=== PATIENT | female | born 1930 | race Caucasian/White ===

== ENCOUNTER 2016-12-23 17:12 | Inpatient (IN) | payer MEDICARE, OTHER ==
[~2016-12-23] VITALS: Ht 152.4 cm; Wt 84.7 kg
[~2016-12-23 17:12] MED LIST: ALL220TA; HYZA100T4; RALO1TAB13
[2016-12-23 17:30] VITALS: BP 171/74; PULSE 84; RESP 16; TEMP 98.3; O2SAT 100
--- NOTE | 2016-12-23 17:45 | PD ---
HPI Chief Complaint: left ankle pain Time Seen by Provider: 17:40 Travel History International Travel<30 days: No Contact w/Intl Traveler<30days: No Traveled to known affect area: No History of Present Illness HPI This is an 86-year-old female who presents via EMS after she had a mechanical fall a walker with her walker. There is question whether she got a little dizzy and fell to the floor. She denies any loss of consciousness. She denies any chest pain, chest pressure. When paramedics arrived, they thought that she had a deformed left ankle and splinted it. When [facility] arrived, she was complaining of no pain. On my examination, she states she has mild pain in her medial left ankle. She denies any pain anywhere else. She denies any dizziness now. She denies any chest pain, chest pressure. PFSH Past Medical History Arthritis: Yes Autoimmune Disease: No Blood Disorders: No Cancer: No Cardiovascular Problems: Yes Chemotherapy: No Diminished Hearing: No Endocrine: No Genitourinary: No Hiatal Hernia: Yes Hypertension: Yes Immune Disorder: No Musculoskeletal: No Neurologic: No Psychiatric: No Reproductive: No Respiratory: No Radiation Therapy: No Renal Failure: No Sickle Cell Disease: No Past Surgical History Abdominal Surgery: Yes AICD: No Arteriovenous Shunt: No Gynecologic Surgery: Yes (HYSTERCTOMY) Hysterectomy: Yes Insulin Pump: No Joint Replacement: Yes Pacemaker: No Social History Alcohol Use: No Tobacco Use: No Substance Use: No Allergies-Medications (Allergen,Severity, Reaction): Coded Allergies: Morphine (Verified Allergy, Severe, NAUSEA AND VOMITING, 12/23/16) Reported Meds & Prescriptions Reported Meds & Active Scripts Active Reported Aleve (Naproxen Sodium) 220 Mg Tab Evista (Raloxifene HCl) 60 Mg Tab Hyzaar 100-12.5 (Losartan Potassium-Hct 100-12.5) 100 - Tab Review of Systems Except as stated in HPI: all other systems reviewed are Neg General / Constitutional: No: Fever, Chills Eyes: No: Diploplia, Blurred Vision HENT: No: Headaches, Vertigo, Lightheadedness Cardiovascular: No: Chest Pain or Discomfort, Palpitations Respiratory: No: Cough, Shortness of Breath Gastrointestinal: No: Nausea, Vomiting, Abdominal Pain Musculoskeletal: Positive: Edema (chronic bilateral lower extremity edema.), Pain (left ankle), No: Weakness Skin: Positive Other (dry skin changes secondary to edema of her lower extremities) Neurologic: Positive: Dizziness (questionable earlier however patient states she doesn't think she was dizzy), No: Weakness, Headache (.), Change in Mentation Physical Exam Narrative GENERAL: Well-nourished, well-developed patient. SKIN: Warm and dry. HEAD: Normocephalic last atraumatic. EYES: No injection or drainage. NECK: Supple, trachea midline. CARDIOVASCULAR: Regular rate and rhythm without murmurs, gallops, or rubs. RESPIRATORY: Breath sounds equal bilaterally. No accessory muscle use. GASTROINTESTINAL: Abdomen soft, non-tender, nondistended. MUSCULOSKELETAL: Chronic 1+ edema to the bilateral lower extremities. Patient states this is not new. There is mild tenderness to palpation in the left medial malleolus. There is no obvious deformity or crepitance noted. There is questionable early ecchymosis noted. She was able to dorsiflex and plantarflex and reported minimal discomfort in her medial malleoli distribution. NEUROLOGICAL: Awake and alert. Cranial nerves II through XII intact. Motor grossly within normal limits. Five out of 5 muscle strength in all muscle groups. Normal speech. Data Data Last Documented VS Vital Signs Date Time Temp Pulse Resp B/P Pulse Ox O2 Delivery O2 Flow Rate FiO2 12/23/16 17:30 98.3 84 16 171/74 100 Orders Ankle, Complete ([id number]) (12/23/16 17:40) Electrocardiogram (12/23/16 18:41) Complete Blood Count With Diff (12/23/16 18:41) Basic Metabolic Panel (Bmp) (12/23/16 18:41) Prothrombin Time / Inr (Pt) (12/23/16 18:41) Act Partial Throm Time (Ptt) (12/23/16 18:41) Chest, Single Ap (12/23/16 18:41) MDM Medical Decision Making Medical Screen Exam Complete: Yes Emergency Medical Condition: Yes Differential Diagnosis Left ankle sprain versus fracture versus contusion Narrative Course 86-year-old female who is status post mechanical fall. The patient had angulated ankle according to the [facility] medics initially on scene. Patient was splinted by fire. When patient arrived she had minimal pain in her medial ankle. X-ray of the left ankle shows a minimally displaced angulated closed distal tib-fib fracture. The patient has no other injuries. I spoke with Dr. Zaira Strauss's PA, who recommended we admit to medicine. He recommended nothing by mouth after midnight. Diagnosis Primary Impression: Closed fracture of distal end of left fibula and tibia Additional Impression: History of hypertension Epifanio Jimenes MD Dec 23, 2016 17:45
--- NOTE | 2016-12-23 18:11 | RADRPT ---
EXAM DATE/TIME: 12/23/2016 18:10 [facility] COMPARISON: No previous studies available for comparison. INDICATIONS : Fall. MEDICAL HISTORY : None. SURGICAL HISTORY : None. ENCOUNTER: Initial ACUITY: 1 day PAIN SCORE: 10/10 LOCATION: Left ankle FINDINGS: Three view exam was performed of the left ankle. There is a mildly displaced and angulated fracture o f the distal tibia and distal fibula with overlying soft tissue swelling. The bones are diffusely ost eopenic. There is no dislocation at the ankle. Vascular calcifications are present. Remote fracture o f fifth metatarsal proximally. CONCLUSION: 1. No acute mildly displaced and angulated fractures of the distal tibial and fibular shafts. Underly ing osteopenia. Misha Nava MD on December 23, 2016 at 18:08 Board Certified Radiologist. This report was verified electronically.
--- NOTE | 2016-12-23 19:30 | RADRPT ---
EXAM DATE/TIME: 12/23/2016 19:08 [facility] COMPARISON: No previous studies available for comparison. INDICATIONS : Chest Pain MEDICAL HISTORY : Cardiovascular disease. Hypertension SURGICAL HISTORY : None. ENCOUNTER: Initial ACUITY: 1 day PAIN SCORE: 5/10 LOCATION: Bilateral chest FINDINGS: No focal consolidation. Minimal basilar atelectasis or scarring. Heart size upper limits normal. No e ffusion or pneumothorax. Atherosclerotic and tortuous aorta. Advanced arthropathy of both shoulders. CONCLUSION: 1. Minimal basilar scarring. No focal consolidation or effusion. Misha Nava MD on December 23, 2016 at 19:28 Board Certified Radiologist. This report was verified electronically.
--- NOTE | 2016-12-23 19:31 | HHI.HP ---
[facility] Service Family Medicine Primary Care Physician Unknown Admission Diagnosis left tib/fib fracture, hypertension by history. Diagnoses: International Travel<30 Days: No Contact w/Intl Traveler<30days: No Known Affected Area: No History of Present Illness Patient is a 86 year old female with PMH significant for HTN, hyperlipidemia, possible diabetes based on medicine list, who presents to the ED after fall. She states that around 8 AM this morning she was walking around her living room with her wheeled walker, felt "dizzy", and "slid down" onto the ground. She states she was able to pull herself up with her walker and sat in a chair. It is unclear what happened immediately after this, as the story that the patient and her son give is different. The patient states that she sat in the chair and eventually notified her "cleaning lady" named Sienna Del Toro about the fall, while the patient's son states that his son was eventually notified by the cleaning lady about the fall, came to the house, and eventually notified the paramedics. She does also endorse total body weakness without focal deficits. She did not lose consciousness or have seizure-like activity per her report, but there were no witnesses. The patient does relate that her left ankle is sore. She denies any other pain including headache, neck pain, shoulder, ankle, wrist, hip, knee, and right ankle pain. She is sure that she did not hit her head or bottom during the fall. He is unclear how the ankle got injured. She states that she did not slip or get caught on any carpeted area but does date that she has rugs. She states that she has not had any falls. She denies any increased urinary frequency or decreased urinary frequency and denies any dysuria. She denies any bleeding from her stools and notes normal bowel movements. She is unsure what medications she takes besides Benicar but does offer to separate paperwork lists of her medications, neither have dates on them and the medications are slightly different on them. The son does know primarily that he is concerned about her mental status. He visits his mother daily. He notes that on Sunday (5 days ago) he arrived and she was "sick" and had urinated on herself. He helped clean her up and noted that she seemed better the next day. States he does not know what medications the patient takes and is concerned about her being safe at home alone and suspects she is not eating much. The patient lives alone. He and the patient's brother and sister all agree that she has lost 30-40 pounds over the last 6 months to one year's time. PCP is Dr. Rika Oconnell. (Lauryn Chavez MD R1) Review of Systems ROS Limitations: Hearing Impaired Constitutional: COMPLAINS OF: Weight loss (quite a bit, 30-40lb in 6-12 month) , DENIES: Fever, Chills Endocrine: DENIES: Polyuria Eyes: DENIES: Blurred vision, Diplopia, Vision loss Ears, nose, mouth, throat: COMPLAINS OF: Hearing loss (wears aids), DENIES: Tinnitus, Vertigo Respiratory: DENIES: Cough, Wheezing Cardiovascular: DENIES: Chest pain, Palpitations, Syncope Gastrointestinal: DENIES: Black stools, Bloody stools, Constipation, Diarrhea, Nausea, Vomiting Integumentary: DENIES: Rash Hematologic/lymphatic: DENIES: Bruising Immunologic/allergic: DENIES: Urticaria Neurologic: COMPLAINS OF: Poor Balance (uses wheeled walker), DENIES: Headache , Localized weakness, Speech Problems (Lauryn Chavez MD R1) Past Family Social History Past Medical History Based on medicine list and limited patient history: HTN GERD Osteoporosis Diabetes Anxiety? Past Surgical History Hysterectomy Hemorrhoidectomy Large ovarian tumor excision ("noncancerous") Bilateral knee arthroplasty Reported Medications Reported Meds & Active Scripts Active Reported Benicar Hct (Olmesartan-Hydrochlorothiazide) 40-12.5 mg Tab 1 Tab PO DAILY Evista (Raloxifene HCl) 60 Mg Tab 60 Mg PO DAILY Metformin (Metformin HCl) 500 Mg Tab 750 Mg PO BIDPC With meals Xanax (Alprazolam) 0.25 Mg Tab 0.25 Mg PO HS PRN Simvastatin 10 Mg Tab 10 Mg PO DAILY Omeprazole 20 Mg Tab 20 Mg PO DAILY Amlodipine (Amlodipine Besylate) 10 Mg Tab 10 Mg PO DAILY (Lauryn Chavez MD R1 ) Allergies: Coded Allergies: Morphine (Verified Allergy, Severe, NAUSEA AND VOMITING, 12/23/16) Active Ordered Medications Inpatient Medications Clonidine 0.1 mg 0.1 mg Q6H PRN PO SEE LABEL COMMENTS; Start 12/23/16 at 20:15 Dextrose (D50w (Vial) Inj) 25 ml UNSCH PRN IV PUSH HYPOGLYCEMIA-SEE COMMENTS; Start 12/23/16 at 20:15 Glucagon (Glucagon Inj) 1 mg UNSCH PRN OTHER HYPOGLYCEMIA-SEE COMMENTS; Start 12/23/16 at 20:15 Hydromorphone HCl (Dilaudid Pf Inj) 0.5 mg ONCE ONCE IV PUSH ; Start 12/23/16 at 20:15; Stop 12/23/16 at 20:16; Status DC Insulin Aspart (NovoLOG SUPPLEMENTAL SCALE) 1 ACHS SLIDING SCALE SQ ; Start at 21:00 Naloxone HCl (Narcan Inj) 0.4 mg UNSCH PRN IV SEE LABEL COMMENTS; Start at 20:00 Potassium Chloride/Sodium Chloride (KCl Inj/NS 1000 ml Inj) 1 ml @ 100 mls/hr Q1M IV ; Start 12/24/16 at 19:57; Status UNV Potassium Chloride (KCl) 40 meq ONCE ONCE PO ; Start 12/23/16 at 20:30; Stop at 20:31; Status UNV Sodium Chloride (NS 1000 ml Inj) 1,000 ml @ 100 mls/hr Q10H IV ; Start at 19:57; Stop 12/23/16 at 20:23; Status DC Sodium Chloride (NS Flush) 2 ml BID IV FLUSH ; Start 12/23/16 at 21:00 Family History No significant past medical history reported by patient or patient's son Social History Patient denies alcohol, tobacco, illicit drug use. She lives alone, uses a little longer for evaluation. She denies a history of falls. Her 5 years ago PCP is Dr. Rika Oconnell Patient has 2 sons, one in the [place] area named Juan Li, cell is [phone] (Lauryn Chavez MD R1) Physical Exam Vital Signs Vital Signs Date Time Temp Pulse Resp B/P Pulse Ox O2 Delivery O2 Flow Rate FiO2 12/23/16 17:30 98.3 84 16 171/74 100 Physical Exam GENERAL: This is a well-nourished, well-developed elderly patient, lying in bed. Left lower extremity in splint. SKIN: No rashes, ecchymoses or lesions. Cool and dry. HEAD: Atraumatic. Normocephalic. No temporal or scalp tenderness. EYES: Pupils equal round and reactive. Extraocular motions intact. No scleral icterus. No injection or drainage. ENT: Patient has hearing aids but is notably hard of hearing. Nose without bleeding or drainage. Throat without erythema, tonsillar hypertrophy or exudate. Mucous membranes appear moist. Uvula midline. Airway patent. NECK: Trachea midline. No JVD or lymphadenopathy. No carotid bruits. Supple, nontender, no meningeal signs. CARDIOVASCULAR: Regular rate and rhythm without murmurs, gallops, or rubs. RESPIRATORY: Clear to auscultation. Breath sounds equal bilaterally. No wheezes , rales, or rhonchi. GASTROINTESTINAL: Abdomen soft, non-tender, nondistended. No hepato-splenomegaly , or palpable masses. No guarding. MUSCULOSKELETAL: Right lower extremity is noted to have 1+ edema to the knee. No joint tenderness or effusion. No calf tenderness. The left lower extremity is noted to be in a splint with ice cuff in place. The toes move freely within the splint and in the unaffected foot. There is normal capillary refill and sensation in the toes bilaterally. NEUROLOGICAL: Awake and alert. Cranial nerves II through XII intact. Motor function grossly within normal limits. Five out of 5 muscle strength in all muscle groups. Normal speech. (cannot assess left lower extremity for strength and motor function) Laboratory Laboratory Tests Test 12/23/16 19:00 White Blood Count 9.0 TH/MM3 (4.0-11.0) Red Blood Count 3.75 MIL/MM3 (4.00-5.30) Hemoglobin 11.6 GM/DL (11.6-15.3) Hematocrit 35.4 % (35.0-46.0) Mean Corpuscular Volume 94.4 FL (80.0-100.0) Mean Corpuscular Hemoglobin 31.0 PG (27.0-34.0) Mean Corpuscular Hemoglobin 32.8 % Concent (32.0-36.0) Red Cell Distribution Width 14.0 % (11.6-17.2) Platelet Count 233 TH/MM3 (150-450) Mean Platelet Volume 7.8 FL (7.0-11.0) Neutrophils (%) (Auto) 83.1 % (16.0-70.0) Lymphocytes (%) (Auto) 9.3 % (9.0-44.0) Monocytes (%) (Auto) 6.8 % (0.0-8.0) Eosinophils (%) (Auto) 0.1 % (0.0-4.0) Basophils (%) (Auto) 0.7 % (0.0-2.0) Neutrophils # (Auto) 7.5 TH/MM3 (1.8-7.7) Lymphocytes # (Auto) 0.8 TH/MM3 (1.0-4.8) Monocytes # (Auto) 0.6 TH/MM3 (0-0.9) Eosinophils # (Auto) 0.0 TH/MM3 (0-0.4) Basophils # (Auto) 0.1 TH/MM3 (0-0.2) CBC Comment DIFF FINAL Differential Comment Prothrombin Time 11.2 SEC (9.8-11.6) Prothromb Time International 1.0 RATIO Ratio Activated Partial 23.4 SEC Thromboplast Time (24.3-30.1) Sodium Level 130 MEQ/L (136-145) Potassium Level 2.8 MEQ/L (3.5-5.1) Chloride Level 91 MEQ/L (98-107) Carbon Dioxide Level 26.1 MEQ/L (21.0-32.0) Anion Gap 13 MEQ/L (5-15) Blood Urea Nitrogen 15 MG/DL (7-18) Creatinine 0.83 MG/DL (0.50-1.00) Estimat Glomerular Filtration 65 ML/MIN (>89) Rate Random Glucose 106 MG/DL (74-106) Calcium Level 8.5 MG/DL (8.5-10.1) (Lauryn Chavez MD R1) Imaging Last 72 hours Impressions Chest X-Ray 12/23/16 1841 Signed Impressions: Service Date/Time: Friday, December 23, 2016 19:08 - CONCLUSION: 1. Minimal basilar scarring. No focal consolidation or effusion. Misha Nava MD Ankle X-Ray 12/23/16 174 Signed Impressions: Service Date/Time: Friday, December 23, 2016 18:10 - CONCLUSION: 1. No acute mildly displaced and angulated fractures of the distal tibial and fibular shafts. Underlying osteopenia. Misha Nava MD (Lauryn Chavez MD R1) Assessment and Plan Assessment and Plan Patient 86 year old female with history of HTN, hyperlipidemia, possible diabetes who presents after mechanical fall. ED workup reveals acute mild displacement related fractures of both the distal tibia and fibula of the left ankle. She is also noted to have hypokalemia on admission. Code Status Full code Discussed Condition With Dr. Holliday (Lauryn Chavez MD R1) Attending Attestation THIS CASE WAS DISCUSSED WITH THE RESIDENT PHYSICIANS. I HAVE REVIEWED THE RECORD AND AGREE WITH THE ABOVE NOTE AND PLAN OF CARE WAS DISCUSSED. I HAVE AUTHORIZED THE ORDER FOR ADMISSION TO AN IN-PATIENT STATUS. (Duc Hoawrd MD) Problem List: (1) Closed fracture of distal end of left fibula and tibia Status: Acute Plan: Patient presents status post fall which occurred 12/23 at approximately 8 AM, resulting in closed nondisplaced fractures of the left distal tibial and fibular shafts. The mechanics of the fall are unclear by patient's history and it was unwitnessed. Plan: -Patient has left lower extremity is in immobilizing splint with icepack -Orthopedic consult -PT, OT, case management consult -She is nothing by mouth after midnight in the event of procedure in a.m. -Hold anticoagulation at this time, will start if no procedure planned -Patient is on raloxifene at home suggesting osteoporosis. Will hold this medication given increased risk for thromboembolism (2) Hypokalemia Status: Acute Plan: Hypokalemia to 2.8 noted on admission labs. This could contribute to patient's presentation. Likely related to poor nutrition. EKG was ordered which is notable for normal sinus rhythm, rate approximately 80, normal NC and QT intervals. There is no evidence of ischemic changes. There is no evidence of T wave abnormalities. Cardiac enzymes negative 1. Plan: Potassium replete orally to 40 mEq Potassium replete IV 40 mEq in 100 ml NS Add 20 mEq potassium to each liter of IVF, which is running at 100 mL per hour Trend BMP at 2200 and in the morning Continue to replete as needed. (3) Hypertension Status: Chronic Plan: Patient is poor historian, however, she asserts she takes Benicar. It seems that she takes Benicar HCT as one list notes this medication at 40/25 mg dosing and the other lists a dose which is not available. Amlodipine is listed as 10mg daily on both lists. Plan: Clonidine to 0.1mg PO every 6 hours as needed for blood pressure >170/100 Restart home amlodipine at 10 mg daily Hold Gloriar is unclear which medication of the above formulations she was taking, will give HCTZ 25mg daily starting 12/24 Will also continue simvastatin 10 mg daily for cholesterol management (4) Fall Status: Acute Plan: Patient is status post fall. The history behind the fall is not consistent with how patient was found when [facility] arrived. The fall was possibly mechanical, however, other etiologies cannot be excluded. Differential diagnosis to include mechanical fall, cognitive impairment, medication misuse, polypharmacy, hypotension, infection. -CBC, CMP, magnesium ordered, notable for hypokalemia to 2.8. Management noted elsewhere -UA pending -Fall precautions -Out of bed with assistance -Orthostatic vital signs -EKG showing no acute abnormality, may be indicated to obtain carotid ultrasound and echo and further workup possible cardiac etiology of fall -Vit D, calcium, B12 level, TSH -Ordered PT, OT, case management -Ordered CT head to exclude acute cerebral source of fall, e.g. bleed (5) Osteoporosis Status: Chronic Plan: Patient takes raloxifene 60 mg daily per her medication list, likely for osteoporosis. One of the known adverse effects of this medication is peripheral edema, which patient does have. It can also increase risk of venous thromboembolism. Plan: -Hold raloxifene (6) Diabetes Status: Chronic Plan: Per patient's medication list, she is on metformin. She states she has diabetes but does not offer more history. Plan: Check blood sugars Low dose sliding scale NovoLog (7) Fluids/Electrolytes/Nutrition/Prophylaxis Status: Acute Plan: Fluids: NS @ 100ml/hr Electrolytes: monitor and replete as needed. Hypokalemia of 2.8 meq/L on admission Nutrition: NPO after midnight DVT Prophylaxis: We'll hold given possible procedure in a.m., start Lovenox 40mg subQ q24hr if no procedure or 24 hours after procedure GI Prophylaxis: Not indicated (Lauryn Chavez MD R1) Problem Qualifiers (1) Closed fracture of distal end of left fibula and tibia: Qualified Code: S82.302A - Closed fracture of distal end of left fibula and tibia, initial encounter Lauryn Chavez MD R1 Dec 23, 2016 19:31 Duc Howard MD Dec 24, 2016 12:31
[2016-12-23 19:38] LABS: AUTOMATED NEUTROPHIL # 7.5 TH/MM3 (1.8-7.7); BASOPHIL # 0.1 TH/MM3 (0-0.2); BASOPHIL % 0.7 % (0.0-2.0); EOSINOPHIL % 0.1 % (0.0-4.0); HEMATOCRIT 35.4 % (35.0-46.0); HEMO FLAGS DIFF FINAL; LYMPH % 9.3 % (9.0-44.0); LYMPHOCYTE # 0.8 TH/MM3 (1.0-4.8); MEAN CELL VOLUME 94.4 FL (80.0-100.0); MEAN CORPUSCULAR HGB CONC 32.8 % (32.0-36.0); MONO % 6.8 % (0.0-8.0); NEUT % 83.1 % (16.0-70.0); PLATELET COUNT 233 TH/MM3 (150-450); RED BLOOD COUNT 3.75 MIL/MM3 (4.00-5.30)
[2016-12-23 19:54] LABS: APTT (PATIENT) 23.4 SEC (24.3-30.1); PROTHROMBIN TIME - PATIENT 11.2 SEC (9.8-11.6)
[2016-12-23] MEDS ORDERED: SODIUM CHLOR 0.9% 1000 ML INJ 1,000 ML IV SCH (19:57)
[2016-12-23] MEDS ORDERED: NALOXONE HCL 0.4 MG/ML AMP IV PRN (20:00)
[2016-12-23] MEDS ORDERED: SODIUM CHLORIDE 0.9% FLUSH 10 ML FLUSH IV FLUSH PRN (20:00)
[2016-12-23] MEDS ORDERED: HYDROmorphone HCL PF 1 MG/ML VIAL IV PUSH ONE (20:15)
[2016-12-23] MEDS ORDERED: GLUCAGON 1 MG/ML VIAL OTHER PRN (20:15)
[2016-12-23] MEDS ORDERED: cloNIDine HCL 0.1 MG TAB PO PRN (20:15)
[2016-12-23] MEDS ORDERED: DEXTROSE 50% IN WATER 50 ML VIAL(D50) IV PUSH PRN (20:15)
[2016-12-23 20:17] LABS: BICARBONATE 26.1 MEQ/L (21.0-32.0)
[2016-12-23 20:18] LABS: POTASSIUM 2.8 MEQ/L (3.5-5.1)
[2016-12-23] MEDS ORDERED: AMLO10TA2 PO (20:22)
[2016-12-23] MEDS ORDERED: SIMV10TA PO (20:22)
[2016-12-23] MEDS ORDERED: EVIS60TA PO ×2 (20:22→20:39)
[2016-12-23] MEDS ORDERED: OMEP20TA PO (20:22)
[2016-12-23] MEDS ORDERED: ALPR.25 PO (20:22)
[2016-12-23] MEDS ORDERED: METF500T PO (20:25)
[2016-12-23] MEDS ORDERED: POTASSIUM CHLORIDE 10 MEQ CONTROLLED RELEASE TAB PO ONE (20:30)
--- NOTE | 2016-12-23 20:35 | RADRPT ---
EXAM DATE/TIME: 12/23/2016 20:23 [facility] COMPARISON: No previous studies available for comparison. INDICATIONS : Trauma; fall. RADIATION DOSE: 36.34 CTDIvol (mGy) MEDICAL HISTORY : Hypertension. SURGICAL HISTORY : None. ENCOUNTER: Initial ACUITY: 1 day PAIN SCALE: 6/10 LOCATION: cranial TECHNIQUE: Multiple contiguous axial images were obtained of the head. Using automated exposure control and adj ustment of the mA and/or kV according to patient size, radiation dose was kept as low as reasonably a chievable to obtain optimal diagnostic quality images. FINDINGS: CEREBRUM: The ventricles are normal for age. No evidence of midline shift, mass lesion, hemorrhage or acute in farction. No extra-axial fluid collections are seen. POSTERIOR FOSSA: The cerebellum and brainstem are intact. The 4th ventricle is midline. The cerebellopontine angle i s unremarkable. EXTRACRANIAL: The visualized portion of the orbits is intact. SKULL: The calvaria is intact. No evidence of skull fracture. CONCLUSION: 1. No acute findings. Atrophy and chronic white matter ischemic changes. Misha Nava MD on December 23, 2016 at 20:30 Board Certified Radiologist. This report was verified electronically.
[2016-12-23 20:39] LABS: INDIRECT BILIRUBIN 0.4 MG/DL (0.0-0.8); MAGNESIUM 1.5 MG/DL (1.5-2.5); TOTAL BILIRUBIN ADULT 0.6 MG/DL (0.2-1.0)
[2016-12-23] MEDS ORDERED: BENI40TA5 PO (20:40)
[2016-12-23] MEDS: INSULIN ASPART SUPPLEMENTAL SCALE SQ SCH (21:00)
[2016-12-23] MEDS: SODIUM CHLORIDE 0.9% FLUSH 10 ML FLUSH IV FLUSH SCH (21:00)
[2016-12-23 21:01] VITALS: BP 161/72; PULSE 86; RESP 18; O2SAT 98
[2016-12-23] MEDS: POTASSIUM CHLOR 20 MEQ PREMIX 100 ML IV SCH ×2 (21:02→22:30)
[2016-12-23 21:45] VITALS: BP 167/76; PULSE 87; RESP 22; TEMP 97.6; O2SAT 98
[2016-12-23] MEDS: ACETAMINOPHEN 1000 MG/100 ML VIAL IV SCH ×2 (22:00→22:48)
[2016-12-23 22:28] VITALS: PULSE 78
[2016-12-23] MEDS: HYDROmorphone HCL PF 1 MG/ML VIAL IV PRN (22:46)
[2016-12-23] MEDS: NS + KCL 20 MEQ INJ 1,000 ML IV SCH ×2 (22:47→22:50)
[2016-12-23 23:45] VITALS: BP 154/73; PULSE 84; RESP 22; TEMP 96.6; O2SAT 97
[2016-12-23 23:59] LABS: BICARBONATE 24.6 MEQ/L (21.0-32.0)
[2016-12-24] LABS: POTASSIUM 3.6 MEQ/L (3.5-5.1)
[2016-12-24 04:00] VITALS: BP 145/65; PULSE 89; RESP 18; TEMP 96.4; O2SAT 99
[2016-12-24] MEDS: ACETAMINOPHEN 1000 MG/100 ML VIAL IV SCH ×2 (04:00→10:00)
[2016-12-24 04:41] LABS: BACTERIA, URINE OCC /hpf; BLOOD, URINE NEG (NEG); GLUCOSE,URINE NEG (NEG); KETONE, URINE 40 mg/dL (NEG); MUCUS URINE FEW /lpf (OCC); NITRITE,URINE NEG (NEG); PH, URINE 5.5 (5.0-8.5); SQUAMOUS EPITHELIAL CELL URINE 1 /hpf (0-5); URINE COLOR YELLOW (YELLW/STRAW)
[2016-12-24] MEDS: LACTATED RINGER'S 1000 ML IV SCH (04:45)
[2016-12-24] MEDS ORDERED: POVIDONE IODINE 5% (ANTISEPSIS KIT) 4 APPLICATIONS EACH NARE SCH (04:45)
[2016-12-24] MEDS: SODIUM CHLORID 0.9% 500 ML IV SCH ×2 (04:45→21:25)
[2016-12-24] MEDS ORDERED: INSULIN HUMAN REGULAR 1,000 UNITS/10 ML VIAL SQ PRN (04:45)
[2016-12-24] MEDS ORDERED: CHLORHEXIDINE GLUCONATE 2 % 1 PACK (2 CLOTHS) TOP SCH (04:45)
[2016-12-24] MEDS: HYDROmorphone HCL PF 1 MG/ML VIAL IV PRN (05:08)
[2016-12-24] MEDS ORDERED: GENTAMICIN SULFATE 80 MG/2 ML VIAL ONE ×2 (05:46→10:02)
[2016-12-24 05:51] LABS: AUTOMATED NEUTROPHIL # 3.6 TH/MM3 (1.8-7.7); BASOPHIL % 0.5 % (0.0-2.0); EOSINOPHIL # 0.1 TH/MM3 (0-0.4); HEMATOCRIT 35.6 % (35.0-46.0); HEMO FLAGS DIFF FINAL; LYMPH % 23.2 % (9.0-44.0); LYMPHOCYTE # 1.3 TH/MM3 (1.0-4.8); MEAN CELL VOLUME 94.6 FL (80.0-100.0); MEAN CORPUSCULAR HEMOGLOBIN 31.5 PG (27.0-34.0); MEAN CORPUSCULAR HGB CONC 33.3 % (32.0-36.0); MONO % 10.3 % (0.0-8.0); PLATELET COUNT 239 TH/MM3 (150-450); RED BLOOD COUNT 3.77 MIL/MM3 (4.00-5.30); RED CELL DISTRIBUTION WIDTH 14.2 % (11.6-17.2); WHITE BLOOD COUNT 5.5 TH/MM3 (4.0-11.0)
[2016-12-24 06:17] LABS: BICARBONATE 22.8 MEQ/L (21.0-32.0); POTASSIUM 3.7 MEQ/L (3.5-5.1)
--- NOTE | 2016-12-24 06:42 | PD.ORT.PN ---
Subjective Subjective Remarks s/p fall at home. left ankle pain. no other complaints. Objective Vitals Vital Signs Date Time Temp Pulse Resp B/P Pulse Ox O2 Delivery O2 Flow Rate FiO2 12/24/16 04:00 96.4 89 18 145/65 99 12/23/16 23:45 96.6 84 22 154/73 97 12/23/16 22:28 78 12/23/16 21:45 97.6 87 22 167/76 98 12/23/16 21:01 86 18 161/72 98 12/23/16 17:30 98.3 84 16 171/74 100 I/O 12/23/16 12/23/16 12/23/16 12/24/16 12/24/16 12/24/16 07:00 15:00 23:00 07:00 15:00 23:00 Intake Total 0 ml Balance 0 ml Intake Oral 0 ml # Voids 5 # Bowel Movements 0 Result Diagram: 12/24/16 0430 12/24/16 0430 Other Results Laboratory Tests Test 12/23/16 19:00 Prothrombin Time 11.2 SEC (9.8-11.6) Prothromb Time International 1.0 RATIO Ratio Imaging Last [address] 12/23/162009 Signed Impressions: Service Date/Time: Friday, December 23, 2016 20:23 - CONCLUSION: 1. No acute findings. Atrophy and chronic white matter ischemic changes. Misha Nava MD Chest X-Ray 12/23/16 1841 Signed Impressions: Service Date/Time: Friday, December 23, 2016 19:08 - CONCLUSION: 1. Minimal basilar scarring. No focal consolidation or effusion. Misha Nava MD Ankle X-Ray 12/23/16 [id number] Signed Impressions: Service Date/Time: Friday, December 23, 2016 18:10 - CONCLUSION: 1. No acute mildly displaced and angulated fractures of the distal tibial and fibular shafts. Underlying osteopenia. Misha Nava MD Objective Remarks LLE: +short leg splint. intact. NVI. 2+ swelilng of lower leg and ankle . + bruising Assessment & Plan Assessment and Plan 1) left distal tibia/fibula fx -consents -surgery today for exfix vs ORIF Carlso A Wright Dec 24, 2016 06:42
[2016-12-24] MEDS: INSULIN ASPART SUPPLEMENTAL SCALE SQ SCH ×4 (06:45→20:25)
[2016-12-24 08:00] VITALS: BP 167/80; PULSE 82; RESP 19; TEMP 97; O2SAT 99
--- NOTE | 2016-12-24 08:13 | MB ---
cc: KERRY SAEZ TODD DATE OF CONSULTATION: 12/24/2016 REASON FOR CONSULTATION: Left distal tibia-fibula fractures. CONSULTING PHYSICIAN Dr. Saze. HISTORY Mr. Li is an 86-year-old female who had a fall. She was walking in her living room. She felt weak and slid down to the ground. Her left leg twisted underneath her. She had immediate left leg pain. She was helped into a chair by a lady that helps her clean house. Her son was notified. Her son called paramedics and had her brought to the emergency room. She is currently awake and alert on the orthopedic floor. Her chief complaint is her left leg. She had no loss of consciousness. Pain is worse with movement and is improved with rest. She states that at rest she has minimal pain. She did not hit her head. PAST MEDICAL HISTORY ILLNESSES Hypertension, reflux, osteoporosis, diabetes, anxiety. SURGERIES Hysterectomy, hemorrhoidectomy, ovarian tumor removal, bilateral knee replacements. MEDICATIONS 1. Benicar. 2. Evista. 3. Metformin. 4. Xanax 5. Simvastatin 6. Omeprazole 7. Amlodipine 8. Clonidine 9. Dextrose. 10. Hydromorphone. 11. Insulin. 12. Naloxone. 13. Potassium. ALLERGIES Morphine FAMILY HISTORY Noncontributory. SOCIAL HISTORY The patient lives at home alone. She denies alcohol, tobacco or drug use. Her several years ago. REVIEW OF SYSTEMS The patient denies headache, visual changes, neck pain, chest pain, shortness of breath, abdominal pain, nausea, vomiting, or recent weight loss, numbness or tingling of the extremities. She complains of left leg pain. PHYSICAL EXAMINATION The patient is a pleasant 86 year-old female who is awake and alert, she is alert, oriented x3. Vital signs: Temperature 96.4, pulse 89, respirations 18, blood pressure 145/65, O2 sat 99% on room air. Head: The patient is normocephalic. Pupils are equal. Neck: Soft, nontender. Trachea is midline. Abdomen: Soft, nontender, nondistended. Extremities: Examination of bilateral upper extremities reveals no pain with shoulder, elbow or wrist motion. She has intact sensation in radial, ulnar, median nerve distribution. She has good capillary refill of all fingers. Radial pulses are palpable. Skin is intact to both hands. Examination of the right leg reveals no pain with hip, knee or ankle motion. Skin is intact. Dorsalis pedis pulses palpable. Sensation is intact. Examination of the left leg reveals no pain with hip or knee motion. She is diffusely tender around the ankle. She has mild to moderate swelling around the ankle. Skin is intact. She does have some bruising present. She has good capillary refill to her toes. Calf compartments are soft. X-RAYS: X-rays of left tibia were reviewed. X-rays revealed a displaced left distal tibia and fibula fracture. IMPRESSION: 1. Osteoporosis. 2. Possible diabetes. 3. Hypertension. 4. Left distal tibia and fibula shaft fractures. PLAN: Treatment options were discussed with the patient. I discussed both open reduction, internal fixation versus possible external fixator of the left ankle. The risks of surgery include bleeding, infection, injury to arteries, nerves, blood vessels, nonunion, malunion, painful hardware, wound complications as well as medical complications including blood clot, stroke, heart attack and . All questions were answered. She understands that if the swelling worsens, she will need external fixator today and delayed open reduction, internal fixation once the swelling has resolved. All questions were answered. A mid-level provider in my office, nurse practitioner or PA, may see this patient on a follow-up basis and continue to implement the objective of this plan including: Starting or adjusting medications, injections of muscle, tendon, bursa or joints, cast application, orthotic or brace application, physical therapy, further radiographic studies including x-ray, MRI, CT, ultrasounds or bone scan, vascular studies, neurologic studies, or other specialist consultations, and proceeding with surgical management as appropriate. MD ESME Arriaga/MERRITT /6:51 AM /7:59 AM IDALMIS
[2016-12-24] MEDS ORDERED: DIMETHICONE/OXYBENZONE/PADMIATE LIP BALM 4.25 GM ONE (08:36)
[2016-12-24] MEDS ORDERED: PROPOFOL 200 MG/20 ML AMP IV ONE (08:43)
[2016-12-24] MEDS ORDERED: ePHEDrine/NS 25 MG/5 ML SYR IV ONE (08:43)
[2016-12-24] MEDS ORDERED: PHENYLEPH/NS 1000 MCG/10 ML SYR IV ONE (08:44)
[2016-12-24] MEDS ORDERED: ONDANSETRON HCL 4 MG/2 ML VIAL IV PUSH ONE (08:44)
[2016-12-24] MEDS ORDERED: ACETAMINOPHEN 1000 MG/100 ML VIAL IV ONE (08:46)
[2016-12-24] MEDS: PANTOPRAZOLE SOD 20 MG DELAYED RELEASE TAB PO SCH (09:00)
[2016-12-24] MEDS: PRAVASTATIN SOD 20 MG TAB PO SCH (09:00)
[2016-12-24] MEDS ORDERED: NON-FORMULARY DRUG (Olmesartan-Hydrochlorothiazide (Benicar Hct) 1 TAB) PO SCH (09:00)
[2016-12-24] MEDS: SODIUM CHLORIDE 0.9% FLUSH 10 ML FLUSH IV FLUSH SCH ×2 (09:00→20:25)
[2016-12-24] MEDS: HYDROCHLOROTHIAZIDE 12.5 MG CAP PO SCH (09:00)
[2016-12-24] MEDS: LOSARTAN 50 MG TAB PO SCH (09:00)
--- NOTE | 2016-12-24 09:54 | OTSOAPIP ---
TIME SESSION COMPLETED: AM TREATMENT TIME: 0 MINS. CHART REVIEWED. RECEIVED ORDERS FOR OCCUPATIONAL THERAPY EVALUATION. PATIENT IS OFF FLOOR FOR SURGERY. WILL FOLLOW UP NEXT DAY STATUS POST SURGERY. INTERDISCIPLINARY COMMUNICATION: REVIEWED ELECTRONIC MEDICAL RECORD Therapist: Lupe Scherer OTR/L Signature on file
[2016-12-24] MEDS ORDERED: ceFAZolin INJ 1,000 MG VIAL ONE (10:02)
[2016-12-24] MEDS ORDERED: VANCOMYCIN HCL 1000 MG VIAL ONE (10:02)
--- NOTE | 2016-12-24 11:27 | PD.OP ---
cc: Keith Meneses MD Operative Report Date of Surgery: Dec 24, 2016 Preoperative Diagnosis: Left distal tibia and fibula fractures Postoperative Diagnosis: Procedure: Open reduction internal fixation left distal tibia Anesthesia: Gen. Surgeon: Keith Meneses Station Supervisor(s): AURORA Melvin PA-C The surgical procedure was assisted by my physician assistant professor of archaeology. My P.A. presence was necessary throughout this case for the manipulation and positioning of the surgical extremity. My P.A. was assisting me throughout the duration of this procedure. The skill set of a physician assistant professor of archaeology was medically necessary to complete this procedure. During the surgical case the surgical pathologist was working at the back table and the physician assistant professor of archaeology was directly assisting me. Operation and Findings: Informed consent was obtained for open reduction and internal fixation of distal tibia fracture. Soft tissue was evaluated preoperatively and found to be suitable for surgery. Patient was brought to the operating placed on operating room table. Patient was given IV sedation and general anesthesia. Timeout procedure was performed, and IV antibiotics were given prior to procedure. The operative leg was now prepped with alcohol followed by Hibiclens and draped usual sterile fashion. A 3 inch incision was now made over the medial aspect of the ankle. Saphenous vein was protected. A full thickness flap was now elevated. The distal medial tibia was now exposed. Attention was now turned towards reduction. The metaphyseal fragments were reduced first. Traction was applied and fracture fragments were manipulated. There were multiple metaphyseal fragments. These were manipulated in excellent reduction was achieved. Fracture tenaculums were used to reduce fractures. Multiple K wires were used to hold provisional fixation. Fluoroscopy confirmed excellent alignment of fractures. A Synthes medial distal tibial plate was selected. Plate was placed percutaneously along the medial aspect of the distal tibia. Plate was provisionally held to bone with K wires. 2.7 cortical screws and 3.5 cortical screws were used to compress plate to bone. Multiple screws were placed into the shaft. Multiple 2.7 locking screws were placed into the distal segment. All screws were predrilled and premeasured for appropriate lengths. Final fluoroscopy revealed well aligned fracture with well-placed hardware. The wound was now thoroughly irrigated. Subcutaneous tissues closed with 3-0 Vicryl and skin was closed with 3-0 nylon. Sterile dressings were applied with Xeroform 4 x 4's soft roll and a well-padded splint.. Needle and sponge counts were correct. Patient was transferred to recovery room in stable condition. Keith Meneses MD Dec 24, 2016 11:27
[2016-12-24] MEDS ORDERED: Post-op Orders (for Pharmacy) MISC XX ONE (11:30)
[2016-12-24] MEDS ORDERED: ONDANSETRON HCL 4 MG/2 ML VIAL IVP PRN (11:30)
[2016-12-24] MEDS ORDERED: WALKER WHEELS/F1 MIS (11:53)
[2016-12-24] MEDS ORDERED: HYDR-3288 PO (11:55)
[2016-12-24] MEDS ORDERED: fentaNYL CITRATE 250 MCG/5 ML AMP ONE (11:56)
[2016-12-24 12:00] VITALS: BP 135/61; PULSE 111; RESP 19; TEMP 96.2; O2SAT 100
--- NOTE | 2016-12-24 12:11 | RADRPT ---
EXAM DATE/TIME: 12/24/2016 11:08 [facility] COMPARISON: No previous studies available for comparison. INDICATIONS : Right ankle ORIF. MEDICAL HISTORY : None. SURGICAL HISTORY : Right ankle. ENCOUNTER: Initial ACUITY: 1 day PAIN SCORE: Non-responsive. LOCATION: Right ankle. FINDINGS: Two-view fluoroscopic images of the right ankle demonstrate a surgical plate and screws traversing a distal right tibial fracture with good anatomic alignment. There is adjacent fracture of the distal o ne third of the fibula with slight lateral displacement. The ankle mortise appears preserved on this exam. CONCLUSION: Status post ORIF of a distal tibial fracture with good anatomic alignment. There is a minimally displ aced distal right fibular fracture present. No evidence of ankle mortise disruption. Rashmi Saxena MD on December 24, 2016 at 12:08 Board Certified Radiologist. This report was verified electronically.
--- NOTE | 2016-12-24 12:31 | HHI.FPPN ---
Subjective Remarks Patient was off the floor in the operating room with orthopedics on rounds this morning. She was brought back to the floor approximately 12:30 PM and was seen postoperatively. She does complain of some urinary frequency at this time and has to use the restroom. She states that she has had some urinary frequency over the last 2-3 days prior to presentation. She denies any significant pain at this time and is able to move the toes of her left foot and sensation is intact into her left foot postoperatively. In summary this is an 86-year-old female who presented to the emergency department after a fall at home. She states that she was at home walking with her walker on the morning of presentation when she felt dizzy and slipped down with her foot/leg getting caught underneath her and twisting. She felt immediate pain in her left ankle and was unable to bear weight. She then told her son about the incident and her son had her brought into the emergency department for further evaluation. There has been a concern of progressive generalized weakness and of possible early dementia or change in mental status. Her son visits his mother daily and noticed that approximately 5 days ago she seemed to be doing worse with some self urination and confusion. Past Medical History Based on medicine list and limited patient history: HTN GERD Osteoporosis Diabetes Anxiety? Past Surgical History Hysterectomy Hemorrhoidectomy Large ovarian tumor excision ("noncancerous") Bilateral knee arthroplasty Family History No significant past medical history reported by patient or patient's son Social History Patient denies alcohol, tobacco, illicit drug use. She lives alone, uses a little longer for evaluation. She denies a history of falls. Her 5 years ago PCP is Dr. Rika Oconnell Patient has 2 sons, one in the [place] area named Juan Li, cell is [phone] Objective Vitals Vital Signs Date Time Temp Pulse Resp B/P Pulse Ox O2 Delivery O2 Flow Rate FiO2 12/24/16 12:15 97.6 77 14 120/77 99 Nasal Cannula 2 12/24/16 12:00 80 14 128/73 99 Nasal Cannula 2 12/24/16 11:45 97.6 89 14 107/70 98 Nasal Cannula 2 12/24/16 08:00 97.0 82 19 167/80 99 12/24/16 04:00 96.4 89 18 145/65 99 12/23/16 23:45 96.6 84 22 154/73 97 12/23/16 22:28 78 12/23/16 21:45 97.6 87 22 167/76 98 12/23/16 21:01 86 18 161/72 98 12/23/16 17:30 98.3 84 16 171/74 100 I/O 12/23/16 12/23/16 12/23/16 12/24/16 12/24/16 12/24/16 07:00 15:00 23:00 07:00 15:00 23:00 Intake Total 666 ml 800 ml Output Total 10 ml Balance 666 ml 790 ml Intake Oral 0 ml IV Total 666 ml Other 800 ml Output Estimated Blood Loss 10 ml # Voids 5 3 # Bowel Movements 0 Result Diagram: 12/24/16 0430 12/24/16 0430 Imaging Last 48 hours Impressions Ankle X-Ray 12/24/16 0000 Signed Impressions: Service Date/Time: Saturday, December 24, 2016 11:08 - CONCLUSION: Status post ORIF of a distal tibial fracture with good anatomic alignment. There is a minimally displaced distal right fibular fracture present. No evidence of ankle mortise disruption. Rashmi Saxena MD Head CT 12/23/162009 Signed Impressions: Service Date/Time: Friday, December 23, 2016 20:23 - CONCLUSION: 1. No acute findings. Atrophy and chronic white matter ischemic changes. Misha Nava MD Chest X-Ray 12/23/16 1841 Signed Impressions: Service Date/Time: Friday, December 23, 2016 19:08 - CONCLUSION: 1. Minimal basilar scarring. No focal consolidation or effusion. Misha Nava MD Ankle X-Ray 12/23/16 1740 Signed Impressions: Service Date/Time: Friday, December 23, 2016 18:10 - CONCLUSION: 1. No acute mildly displaced and angulated fractures of the distal tibial and fibular shafts. Underlying osteopenia. Misha Nava MD Objective Remarks GENERAL: This is a well-nourished, well-developed elderly patient, lying in bed. Left lower extremity in splint. SKIN: No rashes, ecchymoses or lesions. Cool and dry. NECK: Trachea midline. No JVD or lymphadenopathy. CARDIOVASCULAR: Regular rate and rhythm without murmurs, gallops, or rubs. RESPIRATORY: Clear to auscultation. Breath sounds equal bilaterally. No wheezes , rales, or rhonchi. GASTROINTESTINAL: Abdomen soft, non-tender, nondistended. MUSCULOSKELETAL: Right lower extremity is noted to have 1+ edema to the knee. No joint tenderness or effusion. No calf tenderness. The left lower extremity is noted to be in a splint with ice cuff in place. The toes move freely within the splint and in the unaffected foot. There is normal capillary refill and sensation in the toes bilaterally. NEUROLOGICAL: Awake and alert. Cranial nerves II through XII intact. Motor function grossly within normal limits. Five out of 5 muscle strength in all muscle groups. Normal speech. A/P Assessment and Plan Patient 86 year old female with history of HTN, hyperlipidemia, possible diabetes who presents after mechanical fall. ED workup reveals acute mild displacement related fractures of both the distal tibia and fibula of the left ankle. She is also noted to have hypokalemia on admission. Problem List: (1) Closed fracture of distal end of left fibula and tibia Status: Acute Plan: Patient taken to the OR today by orthopedics PT, OT, case management consult - may require placement at rehabilitation center Pain control per orthopedics -Hold anticoagulation at this time, will start if no procedure planned -Patient is on raloxifene at home suggesting osteoporosis. (2) UTI (urinary tract infection) Status: Acute Plan: Urinalysis indicative of UTI with moderate leukocyte esterase and 7 WBCs - Nursing staff states urine is foul-smelling and does note urinary frequency Begin treatment for UTI with: - Rocephin 1 g IV every 24 Urine culture ordered (3) Hypokalemia Status: Acute Plan: Resolved with both IV/oral potassium replacement - Monitor daily BMPs (4) Hypertension Status: Chronic Plan: Elevated blood pressures on arrival Clonidine to 0.1mg PO every 6 hours as needed for blood pressure >170/100 Restart home amlodipine at 10 mg daily Hold Benicar is unclear which medication of the above formulations she was taking, will give HCTZ 25mg daily starting 12/24 Will also continue simvastatin 10 mg daily for cholesterol management (5) Fall Status: Acute Plan: Patient is status post fall at home. Urinalysis is significant for possible infection - Treatment for UTI as above Fall precautions Out of bed with assistance EKG showing no acute abnormality, may be indicated to obtain carotid ultrasound and echo and further workup possible cardiac etiology of fall Vit D, calcium, B12 level pending TSH within normal limits Ordered PT, OT, case management CT of the head with no acute findings. Atrophy and chronic white matter ischemic changes were noted (6) Osteoporosis Status: Chronic Plan: Patient takes raloxifene 60 mg daily per her medication list, likely for osteoporosis. Plan: -Hold raloxifene and restarted upon discharge (7) Diabetes Status: Chronic Plan: Per patient's medication list, she is on metformin. Plan: Check blood sugars Low dose sliding scale NovoLog (8) Fluids/Electrolytes/Nutrition/Prophylaxis Status: Acute Plan: Fluids: NS @ 100ml/hr Electrolytes: monitor and replete as needed. Nutrition: NPO after midnight DVT Prophylaxis: Start Lovenox 40mg subQ q24hr if no procedure or 24 hours after procedure GI Prophylaxis: Not indicated Problem Qualifiers (1) Closed fracture of distal end of left fibula and tibia: Qualified Code: S82.302A - Closed fracture of distal end of left fibula and tibia, initial encounter Duc Howard MD Dec 24, 2016 12:31
[2016-12-24] MEDS ORDERED: NALOXONE HCL 0.4 MG/ML AMP IV PRN (14:00)
[2016-12-24] MEDS ORDERED: ACETAMINOPHEN/HYDROcodone 325 MG/5 MG TAB PO PRN (14:00)
[2016-12-24] MEDS ORDERED: IBUPROFEN 400 MG TAB PO PRN (14:00)
[2016-12-24] MEDS ORDERED: ACETAMINOPHEN/HYDROcodone 325 MG/7.5 MG TAB PO PRN (14:00)
--- NOTE | 2016-12-24 15:06 | EKG ---
Date Performed: 12/23/2016 Time Performed: 20:48:28 PTAGE: 86 years EKG: Sinus rhythm Since previous tracing, no significant change noted NORMAL ECG PREVIOUS TRACING : 02/11/2007 10.02 DOCTOR: Benjamín Roberts Interpretating Date/Time 12/24/2016 15:05:14
[2016-12-24 16:00] VITALS: BP 124/62; PULSE 92; RESP 19; TEMP 95.7; O2SAT 98
[2016-12-24] MEDS ORDERED: cefTRIAXone INJ 1,000 MG in SODIUM CHLORIDE 0.9% INJ 100 ML IV SCH (16:00)
[2016-12-24] MEDS: ceFAZolin 2 GM PREMIX 50 ML IV SCH (16:50)
[2016-12-24] MEDS: NS + KCL 20 MEQ INJ 1,000 ML IV SCH (16:51)
[2016-12-24 19:46] VITALS: O2SAT 98
[2016-12-24 20:00] VITALS: BP 138/63; PULSE 96; RESP 16; TEMP 96.8; O2SAT 100
[2016-12-24] MEDS: ACETAMINOPHEN/HYDROcodone 325 MG/7.5 MG TAB PO PRN (23:16)
[2016-12-25] VITALS (7 sets, daily range): BP systolic 117–148; BP diastolic 67–70; PULSE 80–94; RESP 16–18; TEMP 95.7–97.9; O2SAT 91–99
[2016-12-25] MEDS: ceFAZolin 2 GM PREMIX 50 ML IV SCH ×2 (02:45→10:03)
[2016-12-25] MEDS: NS + KCL 20 MEQ INJ 1,000 ML IV SCH ×3 (02:45→23:46)
[2016-12-25] MEDS: HYDROmorphone HCL PF 1 MG/ML VIAL IV PRN (03:18)
[2016-12-25] MEDS: LACTATED RINGER'S 1000 ML IV SCH ×2 (04:45→23:44)
--- NOTE | 2016-12-25 06:35 | PD.ORT.PN ---
Subjective Subjective Remarks POD 1 s/p ORIF left distal tibia doing well. confused. pain controlled. Objective Vitals Vital Signs Date Time Temp Pulse Resp B/P Pulse Ox O2 Delivery O2 Flow Rate FiO2 12/25/16 04:00 97.9 88 17 148/70 96 12/25/16 03:48 18 12/25/16 00:16 18 12/25/16 00:00 97.3 94 16 148/69 97 12/24/16 20:00 96.8 96 16 138/63 100 12/24/16 19:46 98 12/24/16 16:00 95.7 92 19 124/62 98 12/24/16 12:15 97.6 77 14 120/77 99 Nasal Cannula 2 12/24/16 12:00 80 14 128/73 99 Nasal Cannula 2 12/24/16 12:00 96.2 111 19 135/61 100 12/24/16 11:45 97.6 89 14 107/70 98 Nasal Cannula 2 12/24/16 08:00 97.0 82 19 167/80 99 I/O 12/24/16 12/24/16 12/24/16 12/25/16 12/25/16 12/25/16 06:59 14:59 22:59 06:59 14:59 22:59 Intake Total 666 ml 1280 ml 1065 ml Output Total 585 ml 250 ml Balance 666 ml 695 ml 815 ml Intake Oral 0 ml 480 ml 240 ml IV Total 666 ml 825 ml Other 800 ml Output Urine Total 575 ml 250 ml Estimated Blood Loss 10 ml # Voids 5 8 # Bowel Movements 0 0 0 Result Diagram: 12/24/1642912/24/16429 Imaging Last [address] 12/23/162009 Signed Impressions: Service Date/Time: Friday, December 23, 2016 20:23 - CONCLUSION: 1. No acute findings. Atrophy and chronic white matter ischemic changes. Misha Nava MD Chest X-Ray 12/23/16 184 Signed Impressions: Service Date/Time: Friday, December 23, 2016 19:08 - CONCLUSION: 1. Minimal basilar scarring. No focal consolidation or effusion. Misha Nava MD Ankle X-Ray 12/23/16 3970 Signed Impressions: Service Date/Time: Friday, December 23, 2016 18:10 - CONCLUSION: 1. No acute mildly displaced and angulated fractures of the distal tibial and fibular shafts. Underlying osteopenia. Misha Nava MD Objective Remarks LLE: +short leg splint. intact. NVI. Assessment & Plan Assessment and Plan 1) left distal tibia/fibula fx s/p ORIF - POD 1 -NWB -maintain splint -elevate -CM for discharge planning to Rehab -f/u with [facility] in 2 weeks Carlos A Wright Dec 25, 2016 06:35
[2016-12-25] MEDS: INSULIN ASPART SUPPLEMENTAL SCALE SQ SCH ×4 (07:00→21:00)
[2016-12-25 07:17] LABS: AUTOMATED NEUTROPHIL # 5.1 TH/MM3 (1.8-7.7); BASOPHIL % 0.4 % (0.0-2.0); EOSINOPHIL # 0.1 TH/MM3 (0-0.4); EOSINOPHIL % 1.4 % (0.0-4.0); HEMO FLAGS DIFF FINAL; LYMPH % 16.4 % (9.0-44.0); LYMPHOCYTE # 1.1 TH/MM3 (1.0-4.8); MEAN CELL VOLUME 94.7 FL (80.0-100.0); MEAN CORPUSCULAR HEMOGLOBIN 30.9 PG (27.0-34.0); MEAN CORPUSCULAR HGB CONC 32.6 % (32.0-36.0); MONO % 8.9 % (0.0-8.0); NEUT % 72.9 % (16.0-70.0); PLATELET COUNT 209 TH/MM3 (150-450); RED CELL DISTRIBUTION WIDTH 14.3 % (11.6-17.2)
[2016-12-25 07:32] LABS: BICARBONATE 27.6 MEQ/L (21.0-32.0); POTASSIUM 3.6 MEQ/L (3.5-5.1)
[2016-12-25] MEDS: LOSARTAN 50 MG TAB PO SCH (09:58)
[2016-12-25] MEDS: SODIUM CHLORIDE 0.9% FLUSH 10 ML FLUSH IV FLUSH SCH ×2 (09:59→21:00)
[2016-12-25] MEDS: PRAVASTATIN SOD 20 MG TAB PO SCH (09:59)
[2016-12-25] MEDS: PANTOPRAZOLE SOD 20 MG DELAYED RELEASE TAB PO SCH (10:00)
[2016-12-25] MEDS: HYDROCHLOROTHIAZIDE 12.5 MG CAP PO SCH (10:00)
--- NOTE | 2016-12-25 10:19 | HHI.FPPN ---
Subjective Remarks Worked with PT this morning - did well. Pivoting with assistance, good rehab potential. Reports feeling lightheaded, no dizziness, no CP and no SOB. First time out of bed. Low BG this morning per RN. Given OJ. BP in bed 143/67 -- at bedside 104/65 (sitting). ? Orthostatics causing dizziness. Overall she denies any pain, or discomfort. Speaking in full sentences and does not appear in distress. (Mac Holliday MD R2) Objective Vitals Vital Signs Date Time Temp Pulse Resp B/P Pulse Ox O2 Delivery O2 Flow Rate FiO2 12/25/16 08:53 91 Nasal Cannula 21 12/25/16 08:00 95.7 80 18 143/67 99 12/25/16 04:00 97.9 88 17 148/70 96 12/25/16 03:48 18 12/25/16 00:16 18 12/25/16 00:00 97.3 94 16 148/69 97 12/24/16 20:00 96.8 96 16 138/63 100 12/24/16 19:46 98 12/24/16 16:00 95.7 92 19 124/62 98 12/24/16 12:15 97.6 77 14 120/77 99 Nasal Cannula 2 12/24/16 12:00 80 14 128/73 99 Nasal Cannula 2 12/24/16 12:00 96.2 111 19 135/61 100 12/24/16 11:45 97.6 89 14 107/70 98 Nasal Cannula 2 I/O 12/24/16 12/24/16 12/24/16 12/25/16 12/25/16 12/25/16 07:00 15:00 23:00 07:00 15:00 23:00 Intake Total 666 ml 1280 ml 1065 ml 240 ml Output Total 585 ml 250 ml 350 ml Balance 666 ml 695 ml 815 ml -110 ml Intake Oral 0 ml 480 ml 240 ml 240 ml IV Total 666 ml 825 ml Other 800 ml Output Urine Total 575 ml 250 ml 350 ml Estimated Blood Loss 10 ml # Voids 5 8 # Bowel Movements 0 0 0 0 (Mac Holliday MD R2) Result Diagram: 12/25/16 0635 12/25/16 0635 Imaging Last Impressions Ankle X-Ray 12/24/16 0000 Signed Impressions: Service Date/Time: Saturday, December 24, 2016 11:08 - CONCLUSION: Status post ORIF of a distal tibial fracture with good anatomic alignment. There is a minimally displaced distal right fibular fracture present. No evidence of ankle mortise disruption. Rashmi Saxena MD Head CT 12/23/162009 Signed Impressions: Service Date/Time: Friday, December 23, 2016 20:23 - CONCLUSION: 1. No acute findings. Atrophy and chronic white matter ischemic changes. Misha Nava MD Chest X-Ray 12/23/16 184 Signed Impressions: Service Date/Time: Friday, December 23, 2016 19:08 - CONCLUSION: 1. Minimal basilar scarring. No focal consolidation or effusion. Misha Nava MD Objective Remarks GENERAL: This is a well-nourished, well-developed elderly patient, lying in bed. Left lower extremity in splint. SKIN: No rashes, ecchymoses or lesions. Cool and dry. NECK: Trachea midline. No JVD or lymphadenopathy. CARDIOVASCULAR: Regular rate and rhythm without murmurs, gallops, or rubs. RESPIRATORY: Clear to auscultation. Breath sounds equal bilaterally. No wheezes , rales, or rhonchi. GASTROINTESTINAL: Abdomen soft, non-tender, nondistended. MUSCULOSKELETAL: Right lower extremity is noted to have 1+ edema to the knee. No joint tenderness or effusion. No calf tenderness. The left lower extremity is noted to be in a splint with ice cuff in place. The toes move freely within the splint and in the unaffected foot. There is normal capillary refill and sensation in the toes bilaterally. NEUROLOGICAL: Awake and alert. Cranial nerves II through XII intact. Motor function grossly within normal limits. Five out of 5 muscle strength in all muscle groups. Normal speech. (Mac Holliday MD R2) A/P Assessment and Plan Patient 86 year old female with history of HTN, hyperlipidemia, possible diabetes who presents after mechanical fall. ED workup reveals acute mild displacement related fractures of both the distal tibia and fibula of the left ankle. She is also noted to have hypokalemia on admission. (Mac Holliday MD R2) Attending Attestation Pt. examined and case discussed with resident physicians I have read the above note and agree with the assessment/plan as discussed with me I was involved in all medical decision making for this patient Patient's son is concerned about continued confusion and some slurred speech Also states that she does not have a history of falls Given this information, we will do a stroke evaluation - 2d echocardiogram - MRI brain - Carotid US Duc Howard MD (Duc Howard MD) Problem List: (1) Closed fracture of distal end of left fibula and tibia Status: Acute Plan: POD # 2 - ORIF Left distal tibia. Doing well. PT, OT, case management consult - will require placement at rehabilitation center Pain control per orthopedics (2) UTI (urinary tract infection) Status: Acute Plan: Urinalysis indicative of UTI with moderate leukocyte esterase and 7 WBCs - Nursing staff states urine is foul-smelling and does note urinary frequency Begin treatment for UTI with: - Rocephin 1 g IV every 24 Urine culture ordered (3) Hypokalemia Status: Acute Plan: Resolved with both IV/oral potassium replacement - Monitor daily BMPs K+ 12/25 was 3.6 (4) Hypertension Status: Chronic Plan: Elevated blood pressures on arrival Clonidine to 0.1mg PO every 6 hours as needed for blood pressure >170/100 Restart home amlodipine at 10 mg daily (HELD 12/25 due to hypotension 104 systolic) Losartan 100 mg qd (HELD 12/25) HCTZ 12.5 mg PO qd cont. Will also continue simvastatin 10 mg daily for cholesterol management (5) Fall Status: Acute Plan: Patient is status post fall at home. Urinalysis is significant for possible infection - Treatment for UTI as above Fall precautions Out of bed with assistance EKG showing no acute abnormality, may be indicated to obtain carotid ultrasound and echo and further workup possible cardiac etiology of fall Vit D, calcium, B12 level pending TSH within normal limits Ordered PT, OT, case management CT of the head with no acute findings. Atrophy and chronic white matter ischemic changes were noted (6) Osteoporosis Status: Chronic Plan: Patient takes raloxifene 60 mg daily per her medication list, likely for osteoporosis. Plan: -Hold raloxifene and restarted upon discharge (7) Diabetes Status: Chronic Plan: Per patient's medication list, she is on metformin. Plan: Check blood sugars Low dose sliding scale NovoLog (8) Fluids/Electrolytes/Nutrition/Prophylaxis Status: Acute Plan: Fluids: NS @ 100ml/hr hold Electrolytes: monitor and replete as needed. Nutrition: DVT Prophylaxis: Start Lovenox 40mg subQ q24hr if no procedure or 24 hours after procedure GI Prophylaxis: Not indicated dw Dr. Howard. (Mac Holliday MD R2) Problem Qualifiers (1) Closed fracture of distal end of left fibula and tibia: Qualified Code: S82.302A - Closed fracture of distal end of left fibula and tibia, initial encounter Mac Holliday MD R2 Dec 25, 2016 10:19 Duc Howard MD Dec 25, 2016 18:45
[2016-12-25] MEDS: cefTRIAXone INJ 1,000 MG in SODIUM CHLORIDE 0.9% INJ 100 ML IV SCH (16:09)
[2016-12-25] MEDS: ACETAMINOPHEN/HYDROcodone 325 MG/7.5 MG TAB PO PRN (20:33)
--- NOTE | 2016-12-25 22:22 | RADRPT ---
EXAM DATE/TIME: 12/25/2016 20:43 [facility] COMPARISON: No previous studies available for comparison. INDICATIONS : CVA. MEDICAL HISTORY : Hypertension. Diabetes. SURGICAL HISTORY : Bi-lateral knees. Wrist. ENCOUNTER: Subsequent ACUITY: 3 day PAIN SCORE: 3/10 LOCATION: cranial TECHNIQUE: Multiplanar, multisequence MRI of the brain was performed without contrast. FINDINGS: CEREBRUM: There is no acute infarct, acute hemorrhage, midline shift or extra-axial fluid collection. Diffuse c erebral atrophy is noted. Scattered old lacunar infarcts are noted within the bilateral basal ganglia . WHITE MATTER: Moderate periventricular and subcortical white matter small vessel ischemic changes are noted bilater ally. POSTERIOR FOSSA: The cerebellum and brainstem are intact. The 4th ventricle is midline. The cerebellopontine angle is unremarkable. The cerebellar tonsils are normal in position. DIFFUSION IMAGING: No focal areas of restricted diffusion are seen. No evidence of acute infarction. EXTRACRANIAL: The visualized portions of the orbits and paranasal sinuses are unremarkable. CONCLUSION: 1. Diffuse cerebral atrophy and moderate periventricular/subcortical white matter small vessel ischem ic changes bilaterally. 2. Scattered old lacunar infarcts within the bilateral basal ganglia. 3. No acute infarct, acute hemorrhage, mass effect or extra-axial fluid collections. Anthony Harris MD on December 25, 2016 at 22:18 Board Certified Radiologist. This report was verified electronically.
[2016-12-26] VITALS (7 sets, daily range): BP systolic 108–144; BP diastolic 61–74; PULSE 69–84; RESP 16–18; TEMP 96.5–98; O2SAT 96–100
[2016-12-26 06:13] LABS: AUTOMATED NEUTROPHIL # 2.8 TH/MM3 (1.8-7.7); BASOPHIL % 0.7 % (0.0-2.0); EOSINOPHIL # 0.1 TH/MM3 (0-0.4); EOSINOPHIL % 2.4 % (0.0-4.0); HEMATOCRIT 32.2 % (35.0-46.0); HEMO FLAGS DIFF FINAL; LYMPH % 32.1 % (9.0-44.0); LYMPHOCYTE # 1.7 TH/MM3 (1.0-4.8); MEAN CELL VOLUME 93.8 FL (80.0-100.0); MEAN CORPUSCULAR HEMOGLOBIN 32.4 PG (27.0-34.0); MEAN CORPUSCULAR HGB CONC 34.5 % (32.0-36.0); MONO % 11.2 % (0.0-8.0); NEUT % 53.6 % (16.0-70.0); PLATELET COUNT 186 TH/MM3 (150-450); RED BLOOD COUNT 3.43 MIL/MM3 (4.00-5.30); RED CELL DISTRIBUTION WIDTH 13.9 % (11.6-17.2); WHITE BLOOD COUNT 5.2 TH/MM3 (4.0-11.0)
[2016-12-26] MEDS: INSULIN ASPART SUPPLEMENTAL SCALE SQ SCH ×2 (06:29→11:00)
[2016-12-26 06:33] LABS: BICARBONATE 26.4 MEQ/L (21.0-32.0); POTASSIUM 3.7 MEQ/L (3.5-5.1)
[2016-12-26] MEDS: SODIUM CHLORIDE 0.9% FLUSH 10 ML FLUSH IV FLUSH SCH (09:00)
[2016-12-26] MEDS ORDERED: LOSARTAN 50 MG TAB PO SCH (09:30)
--- NOTE | 2016-12-26 09:33 | RADRPT ---
EXAM DATE/TIME: 12/26/2016 08:36 [facility] COMPARISON: No previous studies available for comparison. INDICATIONS : CVA. MEDICAL HISTORY : Hypertension. Hernia, hiatal. Arthritis. Measles. SURGICAL HISTORY : Hysterectomy. Total knee replacement, left. Total knee replacement, right. ENCOUNTER: Initial ACUITY: 1 day PAIN SCORE: 10 LOCATION: Bilateral neck PEAK SYSTOLIC VELOCITIES (cm/sec): ICA/CCA RATIO: Right: 2.4 Left: 1.2 ICA: Right: 110 Left: 71 CCA: Right: 46 Left: 58 ECA: Right: 70 Left: 287 VERTEBRAL: Right: 63 antegrade Left: 46 antegrade Elevated flow velocities and ICA/CCA ratios have been found to correlate with increased degrees of vessel stenosis, calculated as percentage of diameter relative to a normal segment of distal ICA/CCA FINDINGS: RIGHT CAROTID: Calcified plaque of the carotid bulb. No significant stenosis is visualized. The waveforms are withi n normal limits. LEFT CAROTID: Calcified plaque of the carotid bulb. No significant ICA or CCA stenosis is visualized. There is prom inent calcified plaque of the proximal ECA. VERTEBRAL ARTERIES: Antegrade flow is seen in both vertebral arteries. MISCELLANEOUS: None. CONCLUSION: 1. Findings indicating high grade stenosis of the external carotid artery on the left. 2. No evidence of hemodynamically significant stenosis of the internal carotid arteries or common car otid arteries. Ramírez Berry MD on December 26, 2016 at 9:19 Board Certified Radiologist. This report was verified electronically.
[2016-12-26] MEDS: PANTOPRAZOLE SOD 20 MG DELAYED RELEASE TAB PO SCH (09:35)
[2016-12-26] MEDS: PRAVASTATIN SOD 20 MG TAB PO SCH (09:35)
[2016-12-26] MEDS: NS + KCL 20 MEQ INJ 1,000 ML IV SCH (09:36)
[2016-12-26] MEDS: ACETAMINOPHEN/HYDROcodone 325 MG/7.5 MG TAB PO PRN ×2 (09:36→14:55)
--- NOTE | 2016-12-26 09:51 | PD.ORT.PN ---
Subjective Subjective Remarks Resting comfortably but confused Objective Vitals Vital Signs Date Time Temp Pulse Resp B/P Pulse Ox O2 Delivery O2 Flow Rate FiO2 12/26/16 08:06 97.4 79 18 144/73 100 12/26/16 07:36 74 12/26/16 04:00 98.0 69 17 131/74 97 12/26/16 02:00 76 12/26/16 00:00 97.1 84 16 125/66 98 12/25/16 20:00 97.5 90 16 144/70 98 12/25/16 19:12 Room Air 12/25/16 16:00 97.2 87 18 127/69 98 12/25/16 12:00 96.2 84 18 117/68 94 I/O 12/25/16 12/25/16 12/25/16 12/26/16 12/26/16 12/26/16 07:00 15:00 23:00 07:00 15:00 23:00 Intake Total 240 ml 1200 ml 240 ml 678 ml Output Total 350 ml 500 ml 550 ml 1100 ml Balance -110 ml 700 ml -310 ml -422 ml Intake Oral 240 ml 1200 ml 240 ml 240 ml IV Total 438 ml Output Urine Total 350 ml 500 ml 550 ml 1100 ml # Bowel Movements 0 0 0 0 Result Diagram: 12/26/16 0531 12/26/16 0531 Imaging Last [address] 12/23/162009 Signed Impressions: Service Date/Time: Friday, December 23, 2016 20:23 - CONCLUSION: 1. No acute findings. Atrophy and chronic white matter ischemic changes. Misha Nava MD Chest X-Ray 12/23/16 1841 Signed Impressions: Service Date/Time: Friday, December 23, 2016 19:08 - CONCLUSION: 1. Minimal basilar scarring. No focal consolidation or effusion. Misha Nava MD Ankle X-Ray 12/23/16 7800 Signed Impressions: Service Date/Time: Friday, December 23, 2016 18:10 - CONCLUSION: 1. No acute mildly displaced and angulated fractures of the distal tibial and fibular shafts. Underlying osteopenia. Misha Nava MD Objective Remarks LLE: +short leg splint. intact. NVI. Assessment & Plan Assessment and Plan 1) left distal tibia/fibula fx s/p ORIF - POD 2 -NWB -maintain splint -elevate -CM for discharge planning to Rehab -f/u with Nanette in 2 weeks Isaiah Ashraf Jr. Dec 26, 2016 09:51
--- NOTE | 2016-12-26 10:44 | HHI.DCPOC ---
Discharge Care Plan Diagnosis: (1) Osteoporosis (2) Hypokalemia (3) Hypertension (4) Diabetes (5) History of hypertension (6) UTI (urinary tract infection) (7) Closed fracture of distal end of left fibula and tibia Goals to Promote Your Health * To prevent worsening of your condition and complications * To maintain your health at the optimal level Directions to Meet Your Goals Take your medications as prescribed Follow your dietary instruction Follow activity as directed Keep your appointments as scheduled Take your immunizations and boosters as scheduled If your symptoms worsen call your PCP, if no PCP go to Urgent Care Center or Emergency Room Smoking is Dangerous to Your Health. Avoid second hand smoke Call the 24-hour hour crisis hotline for domestic abuse at Mac Holliday MD R2 Dec 26, 2016 10:44
[2016-12-26] MEDS ORDERED: MACR100C2 PO (10:50)
--- NOTE | 2016-12-26 10:51 | HHI.FPPN ---
Subjective Remarks No pain. No more lightheadedness or feeling dizzy. She asked about her MRI results. She has been eating whole meals, but has not yet had a BM. Working with PT and nursing to get OOB and to chair. Doing well. AFVSS. Amlodipine home dose held 2/2 hypotension 105 systolic yesterday. Objective Vitals Vital Signs Date Time Temp Pulse Resp B/P Pulse Ox O2 Delivery O2 Flow Rate FiO2 12/26/16 08:06 97.4 79 18 144/73 100 12/26/16 07:36 74 12/26/16 04:00 98.0 69 17 131/74 97 12/26/16 02:00 76 12/26/16 00:00 97.1 84 16 125/66 98 12/25/16 20:00 97.5 90 16 144/70 98 12/25/16 19:12 Room Air 12/25/16 16:00 97.2 87 18 127/69 98 12/25/16 12:00 96.2 84 18 117/68 94 I/O 12/25/16 12/25/16 12/25/16 12/26/16 12/26/16 12/26/16 07:00 15:00 23:00 07:00 15:00 23:00 Intake Total 240 ml 1200 ml 240 ml 678 ml Output Total 350 ml 500 ml 550 ml 1100 ml Balance -110 ml 700 ml -310 ml -422 ml Intake Oral 240 ml 1200 ml 240 ml 240 ml IV Total 438 ml Output Urine Total 350 ml 500 ml 550 ml 1100 ml # Bowel Movements 0 0 0 0 Result Diagram: 12/26/16 0531 12/26/16 0531 Objective Remarks GENERAL: This is a well-nourished, well-developed elderly patient, lying in bed. Left lower extremity in splint. SKIN: No rashes, ecchymoses or lesions. Cool and dry. NECK: Trachea midline. No JVD or lymphadenopathy. CARDIOVASCULAR: Regular rate and rhythm without murmurs, gallops, or rubs. RESPIRATORY: Clear to auscultation. Breath sounds equal bilaterally. No wheezes , rales, or rhonchi. GASTROINTESTINAL: Abdomen soft, non-tender, nondistended. MUSCULOSKELETAL: Right lower extremity is noted to have 1+ edema to the knee. No joint tenderness or effusion. No calf tenderness. The left lower extremity is noted to be in a splint with ice cuff in place. The toes move freely within the splint and in the unaffected foot. There is normal capillary refill and sensation in the toes bilaterally. NEUROLOGICAL: Awake and alert. Cranial nerves II through XII intact. Motor function grossly within normal limits. Five out of 5 muscle strength in all muscle groups. Normal speech. A/P Assessment and Plan Patient 86 year old female with history of HTN, hyperlipidemia, possible diabetes who presents after mechanical fall. ED workup reveals acute mild displacement related fractures of both the distal tibia and fibula of the left ankle. She is also noted to have hypokalemia on admission. Problem List: (1) Closed fracture of distal end of left fibula and tibia Status: Acute Plan: POD # 3 - ORIF Left distal tibia. Doing well. PT, OT, case management consult - SNF today 12/26 Pain control per orthopedics (2) Altered mental status Status: Acute Plan: Impression: vascular dementia given lacunar infarcts on MRI vs advancing Alzheimer's dementia. MRI showed no acute pathology i.e. brain bleeding or acute infarct. Continue with lipid control, hypertension control, and diabetic control. Fall precautions at all times. US showed no clinically significant stenosis of either internal carotid artery or common carotids. High grade stenosis of external carotid on left. These findings can be managed as outpatient. (3) UTI (urinary tract infection) Status: Acute Plan: Urinalysis indicative of UTI with moderate leukocyte esterase and 7 WBCs - Nursing staff states urine is foul-smelling and does note urinary frequency Begin treatment for UTI with: - Rocephin 1 g IV every 24 x 1 dose 12/25 Urine culture ordered - can f/u as outpatient, will send home with nitrofuran 100 mg BID for 5 days. (4) Hypokalemia Status: Acute Plan: Resolved with both IV/oral potassium replacement - Monitor daily BMPs K+ 12/26 was 3.7 (5) Hypertension Status: Chronic Plan: Elevated blood pressures on arrival Clonidine to 0.1mg PO every 6 hours as needed for blood pressure >170/100 Restart home amlodipine at 10 mg daily (HELD 12/25 due to hypotension 104 systolic) Losartan 100 mg qd decreased dose to 50 mg daily. HCTZ 12.5 mg PO qd cont. Will also continue simvastatin 10 mg daily for cholesterol management (6) Fall Status: Acute Plan: Patient is status post fall at home. Urinalysis is significant for possible infection - Treatment for UTI as above Fall precautions Out of bed with assistance EKG showing no acute abnormality, may be indicated to obtain carotid ultrasound and echo and further workup possible cardiac etiology of fall Vit D, calcium, B12 level pending TSH within normal limits Ordered PT, OT, case management CT of the head with no acute findings. Atrophy and chronic white matter ischemic changes were noted (7) Osteoporosis Status: Chronic Plan: Patient takes raloxifene 60 mg daily per her medication list, likely for osteoporosis. Plan: -Hold raloxifene and restarted upon discharge (8) Diabetes Status: Chronic Plan: Per patient's medication list, she is on metformin. Plan: Check blood sugars Low dose sliding scale NovoLog (9) Fluids/Electrolytes/Nutrition/Prophylaxis Status: Acute Plan: Fluids: NS @ 100ml/hr hold Electrolytes: monitor and replete as needed. Nutrition: DVT Prophylaxis: Start Lovenox 40mg subQ q24hr if no procedure or 24 hours after procedure GI Prophylaxis: Not indicated dw Dr. Howard. Problem Qualifiers (1) Closed fracture of distal end of left fibula and tibia: Qualified Code: S82.302A - Closed fracture of distal end of left fibula and tibia, initial encounter Mac Holliday MD R2 Dec 26, 2016 10:51
[2016-12-26] MEDS ORDERED: POLYETHYLENE GLYCOL 17 GM PKG PO ONE (11:30)
[2016-12-26] MEDS ORDERED: BISACODYL 10 MG SUPP RECTAL ONE (11:30)
--- NOTE | 2016-12-26 13:22 | EC ---
Study Study Date:12/26/2016 STUDY CONCLUSIONS SUMMARY - Left ventricle: The cavity size was normal. Wall thickness was normal. Systolic function was normal. The estimated ejection fraction was in the range of 50% to 55%. Wall motion was normal; there were no regional wall motion abnormalities. - Aortic valve: Valve area: 1.74cm^2 (Vmax). - Mitral valve: Moderate regurgitation. - Left atrium: The atrium was mildly dilated. - Tricuspid valve: Mild regurgitation. - Pulmonary arteries: PA peak pressure: 42mm Hg (S). If LV function is below 40, please consider prescribing an ACEI or ARB or document rationale for non-use. PROCEDURE DATA STUDY STATUS: Elective. Procedure: Transthoracic echocardiography. Image quality was poor. Scanning was performed from the parasternal, apical, and subcostal acoustic windows. Study completion: The patient tolerated the procedure well. Transthoracic echocardiography. M-mode, complete 2D, complete spectral Doppler, and color Doppler. Height: Height: 60in. Weight: Weight: 188.6lb. Body mass index: BMI: 36.9kg/m^2. Body surface area: BSA: 1.82m^2. Patient status: Inpatient. CARDIAC ANATOMY LEFT VENTRICLE: The cavity size was normal. Wall thickness was normal. Systolic function was normal. The estimated ejection fraction was in the range of 50% to 55%. Wall motion was normal; there were no regional wall motion abnormalities. AORTIC VALVE: Trileaflet; mildly thickened, mildly calcified leaflets. Doppler: Transvalvular velocity was within the normal range. There was no stenosis. No regurgitation. Valve area: 1.74cm^2 (Vmax). Indexed valve area: 0.96cm^2/m^2 (Vmax). Peak gradient: 12mm Hg (S). AORTA: Aortic root: The aortic root was normal in size. MITRAL VALVE: Structurally normal valve. Doppler: Transvalvular velocity was within the normal range. There was no evidence for stenosis. Moderate regurgitation. Peak gradient: 2mm Hg (D). LEFT ATRIUM: The atrium was mildly dilated. RIGHT VENTRICLE: The cavity size was normal. Wall thickness was normal. PULMONIC VALVE: Doppler: Transvalvular velocity was within the normal range. There was no evidence for stenosis. No regurgitation. TRICUSPID VALVE: Structurally normal valve. Doppler: Transvalvular velocity was within the normal range. Mild regurgitation. PULMONARY ARTERY: The main pulmonary artery was normal-sized. Systolic pressure was within the normal range. RIGHT ATRIUM: The atrium was normal in size. PERICARDIUM: There was no pericardial effusion. SYSTEMIC VEINS: Inferior vena cava: The vessel was normal in size. Patient weight: 188.6lb _Ejection fraction:_ 65-75% _Fractional shortening:_ 32% up to 5Kg 5-11.5Kg 11.6-22.9Kg 23-45Kg 45-57Kg Aortic Root 7-13 <17 13-22 17-27 17-27 LA diam 6-13 <23 24-38 33-47 37-40 RVID 10-17 7-15 7-15 7-18 8-17 LVIDd 12-22 <32 24-38 33-47 37-40 LVPW 2-4 3-6 5-7 6-8 7-8 IVS 2-4 3-6 5-7 6-8 7-8 BASIC MEASUREMENTS ADULT NORMAL Left ventricle LV internal dimension, ED, chordal 46.2 mm 43-52 level, PLAX LV internal dimension, ES, chordal 36.4 mm 23-38 level, PLAX Fractional shortening, chordal level, *21 % >29 PLAX LV posterior wall thickness, ED 8.2 mm IVS/LVPW ratio, ED 1.03 <1.3 Ventricular septum Septal thickness, ED 8.46 mm Aortic valve Leaflet separation 15 mm 15-26 BASIC MEASUREMENTS ADULT NORMAL Aortic valve Leaflet separation 15 mm 15-26 Aorta Root diameter, ED 25 mm 20-37 Left atrium Anterior-posterior dimension, ES *42 mm 19-40 Anterior-posterior dimension index, ES *2.31 cm/m^2 <2.2 LA/aortic root ratio 1.68 DOPPLER MEASUREMENTS ADULT NORMAL Main pulmonary artery Pressure, S *42 mm Hg =30 Aortic valve Peak velocity, S 174 cm/s Peak gradient, S 12 mm Hg Valve area, Vmax 1.74 cm^2 Valve area index, Vmax 0.96 cm^2/m^2 Mitral valve Peak E-wave velocity 78 cm/s Deceleration time 165 ms 150-230 Peak gradient, D 2 mm Hg Maximal regurgitant velocity 549 cm/s Tricuspid valve Regurgitant peak velocity 292 cm/s Peak RV-RA gradient, S 34 mm Hg Maximal regurgitant velocity 292 cm/s Systemic veins Estimated CVP 10 mm Hg Right ventricle RV pressure, S *45 mm Hg <30 Pulmonic valve Peak velocity, S 80.1 cm/s LEGEND: Mean values are shown as u=mean value. Asterisk (*) beltre values outside specified normal range. Dmitry Rodríguez [id number]
[2016-12-26] MEDS: cefTRIAXone INJ 1,000 MG in SODIUM CHLORIDE 0.9% INJ 100 ML IV SCH (16:00)
--- NOTE | 2016-12-27 11:07 | HHI.DS ---
Discharge Summary Admission Date Dec 23, 2016 at 19:04 Discharge Date: Dec 26, 2016 Admitting Diagnosis left tib/fib fracture, hypertension by history. (1) Closed fracture of distal end of left fibula and tibia Plan: POD # 3 - ORIF Left distal tibia. Doing well. PT, OT, case management consult - SNF today 12/26 Pain control per orthopedics (2) Altered mental status Plan: Impression: vascular dementia given lacunar infarcts on MRI vs advancing Alzheimer's dementia. MRI showed no acute pathology i.e. brain bleeding or acute infarct. Continue with lipid control, hypertension control, and diabetic control. Fall precautions at all times. US showed no clinically significant stenosis of either internal carotid artery or common carotids. High grade stenosis of external carotid on left. These findings can be managed as outpatient. (3) UTI (urinary tract infection) Plan: Urinalysis indicative of UTI with moderate leukocyte esterase and 7 WBCs - Nursing staff states urine is foul-smelling and does note urinary frequency Begin treatment for UTI with: - Rocephin 1 g IV every 24 x 1 dose 12/25 Urine culture ordered - can f/u as outpatient, will send home with nitrofuran 100 mg BID for 5 days. (4) Hypokalemia Plan: Resolved with both IV/oral potassium replacement - Monitor daily BMPs K+ 12/26 was 3.7 (5) Hypertension Plan: Elevated blood pressures on arrival Clonidine to 0.1mg PO every 6 hours as needed for blood pressure >170/100 Restart home amlodipine at 10 mg daily (HELD 12/25 due to hypotension 104 systolic) Losartan 100 mg qd decreased dose to 50 mg daily. HCTZ 12.5 mg PO qd cont. Will also continue simvastatin 10 mg daily for cholesterol management (6) Fall Plan: Patient is status post fall at home. Urinalysis is significant for possible infection - Treatment for UTI as above Fall precautions Out of bed with assistance EKG showing no acute abnormality, may be indicated to obtain carotid ultrasound and echo and further workup possible cardiac etiology of fall Vit D, calcium, B12 level pending TSH within normal limits Ordered PT, OT, case management CT of the head with no acute findings. Atrophy and chronic white matter ischemic changes were noted (7) Osteoporosis Plan: Patient takes raloxifene 60 mg daily per her medication list, likely for osteoporosis. Plan: -Hold raloxifene and restarted upon discharge (8) Diabetes Plan: Per patient's medication list, she is on metformin. Plan: Check blood sugars Low dose sliding scale [facility] Orthopedic surgery Brief History Patient is a 86 year old female with PMH significant for HTN, hyperlipidemia, possible diabetes based on medicine list, who presents to the ED after fall. She states that around 8 AM this morning she was walking around her living room with her wheeled walker, felt "dizzy", and "slid down" onto the ground. She states she was able to pull herself up with her walker and sat in a chair. It is unclear what happened immediately after this, as the story that the patient and her son give is different. The patient states that she sat in the chair and eventually notified her "cleaning lady" named Sienna Del Toro about the fall, while the patient's son states that his son was eventually notified by the cleaning lady about the fall, came to the house, and eventually notified the paramedics. She does also endorse total body weakness without focal deficits. She did not lose consciousness or have seizure-like activity per her report, but there were no witnesses. The patient does relate that her left ankle is sore. She denies any other pain including headache, neck pain, shoulder, ankle, wrist, hip, knee, and right ankle pain. She is sure that she did not hit her head or bottom during the fall. He is unclear how the ankle got injured. She states that she did not slip or get caught on any carpeted area but does date that she has rugs. She states that she has not had any falls. She denies any increased urinary frequency or decreased urinary frequency and denies any dysuria. She denies any bleeding from her stools and notes normal bowel movements. She is unsure what medications she takes besides Benicar but does offer to separate paperwork lists of her medications, neither have dates on them and the medications are slightly different on them. The son does know primarily that he is concerned about her mental status. He visits his mother daily. He notes that on Sunday (5 days ago) he arrived and she was "sick" and had urinated on herself. He helped clean her up and noted that she seemed better the next day. States he does not know what medications the patient takes and is concerned about her being safe at home alone and suspects she is not eating much. The patient lives alone. He and the patient's brother and sister all agree that she has lost 30-40 pounds over the last 6 months to one year's time. PCP is Dr. Rika Oconnell. CBC/BMP: 12/26/16 0531 12/26/16 0531 Significant Findings Laboratory Tests Test 12/25/16 12/26/16 06:35 05:31 Red Blood Count 3.70 MIL/MM3 3.43 MIL/MM3 (4.00-5.30) (4.00-5.30) Hemoglobin 11.4 GM/DL 11.1 GM/DL (11.6-15.3) (11.6-15.3) Neutrophils (%) (Auto) 72.9 % (16.0-70.0) Monocytes (%) (Auto) 8.9 % (0.0-8.0) 11.2 % (0.0-8.0) Sodium Level 131 MEQ/L (136-145) Chloride Level 93 MEQ/L (98-107) Estimat Glomerular Filtration 79 ML/MIN (>89) Rate Calcium Level 8.2 MG/DL 8.2 MG/DL (8.5-10.1) (8.5-10.1) Hematocrit 32.2 % (35.0-46.0) Imaging Last Impressions Carotid Artery Ultrasound 12/26/16 0000 Signed Impressions: Service Date/Time: Monday, December 26, 2016 08:36 - CONCLUSION: 1. Findings indicating high grade stenosis of the external carotid artery on the left. 2. No evidence of hemodynamically significant stenosis of the internal carotid arteries or common carotid arteries. Ramírez Berry MD Brain MRI 12/25/16 0000 Signed Impressions: Service Date/Time: Sunday, December 25, 2016 20:43 - CONCLUSION: 1. Diffuse cerebral atrophy and moderate periventricular/subcortical white matter small vessel ischemic changes bilaterally. 2. Scattered old lacunar infarcts within the bilateral basal ganglia. 3. No acute infarct, acute hemorrhage, mass effect or extra-axial fluid collections. Anthony Harris MD Ankle X-Ray 12/24/16 0000 Signed Impressions: Service Date/Time: Saturday, December 24, 2016 11:08 - CONCLUSION: Status post ORIF of a distal tibial fracture with good anatomic alignment. There is a minimally displaced distal right fibular fracture present. No evidence of ankle mortise disruption. Rashmi Saxena MD Head CT 12/23/162009 Signed Impressions: Service Date/Time: Friday, December 23, 2016 20:23 - CONCLUSION: 1. No acute findings. Atrophy and chronic white matter ischemic changes. Misha Nava MD Chest X-Ray 12/23/16 184 Signed Impressions: Service Date/Time: Friday, December 23, 2016 19:08 - CONCLUSION: 1. Minimal basilar scarring. No focal consolidation or effusion. Misha Nava MD PE at Discharge GENERAL: This is a well-nourished, well-developed elderly patient, lying in bed. Left lower extremity in splint. SKIN: No rashes, ecchymoses or lesions. Cool and dry. NECK: Trachea midline. No JVD or lymphadenopathy. CARDIOVASCULAR: Regular rate and rhythm without murmurs, gallops, or rubs. RESPIRATORY: Clear to auscultation. Breath sounds equal bilaterally. No wheezes , rales, or rhonchi. GASTROINTESTINAL: Abdomen soft, non-tender, nondistended. MUSCULOSKELETAL: Right lower extremity is noted to have 1+ edema to the knee. No joint tenderness or effusion. No calf tenderness. The left lower extremity is noted to be in a splint with ice cuff in place. The toes move freely within the splint and in the unaffected foot. There is normal capillary refill and sensation in the toes bilaterally. NEUROLOGICAL: Awake and alert. Cranial nerves II through XII intact. Motor function grossly within normal limits. Five out of 5 muscle strength in all muscle groups. Normal speech. Hospital Course Elderly female with history of hypertension and possible UTI was admitted after a mechanical fall which resulted in left tib-fib fracture, made nothing by mouth and surgery next day. CT head on admission showed mild ischemic changes. She underwent ORIF of the left distal tibia on 12/24/16. Postoperative stay was complicated only by possible delirium, however, patient may have baseline dementia. This was managed non-pharmacologically. However, given limited history full stroke work-up initiated postoperatively. TSH, B12, folate, vitamin D ordered and within normal limits aside from vitamin D which is still pending at discharge. US carotids showing high-grade stenosis of the external carotid artery on the left without hemodynamically significant stenosis of the ICAs or common carotids. MRI showing diffuse cerebral atrophy with small vessel ischemic changes as well as scattered old lacunar infarcts within the bilateral basal ganglia. She was also noted to have clinical history of urinary incontinence and altered mental status suggestive of possible infectious etiology. UTI was most likely etiology with UA showing elevated white blood cell count. She was treated for UTI initially with IV Ancef, then IV Rocephin, and discharged with by mouth Bactrim. PT and OT recommended rehabilitation, and patient was discharged to SNF on 12/26 in stable condition. Pt Condition on Discharge: Stable Discharge Disposition: Discharge to SNF Discharge Instructions DIET: Follow Instructions for: As Tolerated, No Restrictions Activities you can perform: Non Weight Bearing Follow up Referrals: Orthopedics - 2 Weeks @ [facility] with Keith Fitzpatrick MD New Medications: Hydrocodone-Acetaminophen ([place]) 7.5-325 mg Tab 1 TAB PO Q4H PRN PAIN #60 Ref 0 TAB Nitrofurantoin Monohydrate Macrocrystals (Macrobid) 100 Mg Cap 100 MG PO BID Infection #10 Ref 0 CAP Walker with Front Wheels (Walker with Front Wheels) 1 Mis Mis 1 EA .ROUTE DIRECTED #1 Ref 0 EA Continued Medications: Alprazolam (Xanax) 0.25 Mg Tab 0.25 MG PO HS PRN INSOMNIA Ref 0 TAB Metformin (Metformin) 500 Mg Tab 750 MG PO BIDPC With meals Blood Sugar Management #60 Ref 0 TAB Olmesartan-Hydrochlorothiazide (Benicar Hct) 40-12.5 mg Tab 1 TAB PO DAILY Blood Pressure Management #30 Ref 0 TAB Omeprazole (Omeprazole) 20 Mg Tab 20 MG PO DAILY #30 Ref 0 TAB Raloxifene (Evista) 60 Mg Tab 60 MG PO DAILY Chemotherapy Management #30 Ref 0 TAB Simvastatin (Simvastatin) 10 Mg Tab 10 MG PO DAILY Cholesterol Management #30 Ref 0 TAB Discontinued Medications: Amlodipine (Amlodipine) 10 Mg Tab 10 MG PO DAILY Blood Pressure Management #30 Ref 0 TAB Lauryn Chavez MD R1 Dec 27, 2016 11:07
== END 2016-12-26 19:02 | DRG 493 ==
LOC: NEPC 17:12 → NEDA 19:04 → N06A 21:35
PROVIDERS: ADMIT Family Medicine; ATTEND Family Medicine
PROC: 0QSH04Z Reposition Left Tibia with Internal Fixation Device, Open Approach (ICD-10-PCS; principal; 2016-12-24 10:05)
DX: S82.302A Unspecified fracture of lower end of left tibia, initial encounter for closed fracture (principal); N39.0 Urinary tract infection, site not specified; I95.9 Hypotension, unspecified; S82.832A Other fracture of upper and lower end of left fibula, initial encounter for closed fracture; E11.9 Type 2 diabetes mellitus without complications; I65.22 Occlusion and stenosis of left carotid artery; I10 Essential (primary) hypertension; W19.XXXA Unspecified fall, initial encounter; Y92.009 Unspecified place in unspecified non-institutional (private) residence as the place of occurrence of the external cause; E87.6 Hypokalemia; M81.0 Age-related osteoporosis without current pathological fracture; Z79.84 Long term (current) use of oral hypoglycemic drugs; R41.82 Altered mental status, unspecified; K21.9 Gastro-esophageal reflux disease without esophagitis; F41.9 Anxiety disorder, unspecified; Z96.653 Presence of artificial knee joint, bilateral; E78.5 Hyperlipidemia, unspecified
CPT/HCPCS: 70450; 70551; 71010; 73600; 73610; 76000; 80048; 80076; 81001; 82550; 82607; 82652; 82746; 82948; 83735; 84443; 84484; 85025; 85610; 85730; 87086; 93005; 93306; 93880; 94150; 99285; C1713; J0131; J0690; J0696; J1170; J1580; J2370; J2405; J3010; J3370; J3480